=== PATIENT | male | born 1940 | race Caucasian/White ===

== ENCOUNTER 2018-08-13 14:15 | Inpatient (IN) | payer MEDICARE ==
[~2018-08-13] VITALS: Ht 171.4 cm; Wt 99.4 kg
[2018-10-22] MEDS ORDERED: AMLO5TAB9 PO (17:09)
[2018-10-22] MEDS ORDERED: UBID100C10 PO (17:09)
[2018-10-22] MEDS ORDERED: LOVA20TA3 PO (17:09)
[2018-10-22] MEDS ORDERED: TURM500C9 PO (17:09)
[2018-10-22] MEDS ORDERED: DIPH25TA20 PO (17:09)
[2018-10-22] MEDS ORDERED: CARV25TA PO (17:09)
[2018-10-22] MEDS ORDERED: RANI300C PO (17:09)
[2018-10-22] MEDS ORDERED: LISI-613 PO (17:09)
[2018-10-22] MEDS ORDERED: CINNAMON PO (17:09)
[2018-10-22] MEDS ORDERED: ASCO10007 PO (17:09)
[2018-10-22] MEDS ORDERED: METF-444 PO (17:09)
[2018-10-22] MEDS ORDERED: CRAN1TAB2 PO (17:09)
[2018-10-22] MEDS ORDERED: TERA10CA4 PO (17:09)
[2018-10-22] MEDS ORDERED: CHOL200013 PO (17:09)
[2018-10-22] MEDS ORDERED: MULT-1203 PO (17:09)
[2018-10-22] MEDS ORDERED: FISH12002 PO (17:09)
[2018-10-22] MEDS ORDERED: GLUC-148 PO (17:09)
[2018-10-22] MEDS ORDERED: ZINC50TA64 PO (17:09)
[2018-10-28] MEDS ORDERED: OXYC5 PO (07:58)
[2019-05-13 10:46] LABS: BILIRUBIN,URINE Small (NEGATIVE); COLOR,URINE Dark Yellow (YELLOW); GLUCOSE, URINE (UA) Negative (NEGATIVE); KETONES,URINE Trace mg/dL (NEGATIVE); LEUKOCYTE ESTERASE ,URINE Trace (NEGATIVE); NITRATE,URINE Negative (NEGATIVE); OCCULT BLOOD,URINE Negative (NEGATIVE); PH,URINE 5.5 (5.0-8.0); PROTEIN,URINE Trace mg/dL (NEGATIVE)
[2019-05-13 10:51] LABS: APPEARANCE,URINE Clear (CLEAR)
[2019-05-13 11:14] LABS: BACTERIA,URINE Rare /HPF (None Seen); MUCUS,URINE Moderate LPF (None Seen); RBC,URINE 0-1 /HPF (0-1); SQUAMOUS EPITHELIAL CELL,UR Rare /HPF (0-2); WBC,URINE 0-1 /HPF (0-1)
[2019-05-13 11:17] VITALS: BP 124/50
[2019-05-13] MEDS ORDERED: FURO20TA6 PO (11:56)
[2019-05-13] MEDS ORDERED: TURM1CAP PO (11:58)
[2019-05-13] MEDS ORDERED: ASPI-555 PO (12:01)
[2019-05-13] MEDS ORDERED: NITR0.4T50 SL (12:03)
--- NOTE | 2019-05-13 16:38 | NUR ---
UA INFORMED DR. SANCHEZ OF ABNORMAL UA. ORDERS RECEIVED TO GIVE GENTAMICIN 240MG IV ON AM OF PROCEDURE AND DO URINE CULTURE ON URINE COLLECTED FROM TODAY.
[2019-05-16] VITALS (19 sets, daily range): BP systolic 103–152; BP diastolic 46–63
[2019-05-16] MEDS: CLINDAMYCIN 900 MG/D5% WATER 50 ML IV SCH ×2 (05:00→12:30)
[2019-05-16] MEDS ORDERED: GENTAMICIN SULFATE 240 MG in SODIUM CHLORIDE 0.9% 100 ML IV SCH (07:00)
[2019-05-16] MEDS ORDERED: GENTAMICIN SULFATE 0 MG in SODIUM CHLORIDE 0.9% 100 ML IV SCH (07:00)
[2019-05-16] MEDS ORDERED: SODIUM CHLORIDE 0.9% 1000ML 1,000 ML IV ONE (09:50)
[2019-05-16] MEDS ORDERED: ACETAMINOPHEN EXTRA STRENGTH 500 MG TABLET ONE (11:19)
[2019-05-16] MEDS ORDERED: OXYCODONE HCL 10 MG TAB.SR.12H PO ONE (11:19)
[2019-05-16] MEDS ORDERED: KETOROLAC TROMETHAMINE 15MG/ML ONE (11:19)
[2019-05-16] MEDS ORDERED: ROPIVACAINE 0.5% 5MG/ML 30ML IJ ONE (12:02)
[2019-05-16] MEDS ORDERED: LIDOCAINE PF 2% 5ML ABBOJECT ONE (12:03)
[2019-05-16] MEDS ORDERED: PROPOFOL 10 MG/ML 20ML VIAL IV ONE (12:04)
[2019-05-16] MEDS ORDERED: MIDAZOLAM HCL 1 MG/ML 2ML VIAL ONE (12:04)
[2019-05-16] MEDS ORDERED: FENTANYL CITRATE PF 50 MCG/1 ML 2ML VIAL ONE ×2 (12:04→14:28)
[2019-05-16] MEDS ORDERED: ROCURONIUM 10MG/1ML SYR 10 MG/ML ML ONE ×2 (12:04→12:55)
[2019-05-16] MEDS ORDERED: EPHEDRINE SULFATE 50 MG/ML AMPULE ONE (12:31)
[2019-05-16] MEDS ORDERED: GLYCOPYRROLATE 1 MG/5 ML SYRINGE ONE (12:44)
[2019-05-16] MEDS ORDERED: NEOSTIGMINE 5MG/5ML SYR IV ONE (12:44)
[2019-05-16] MEDS ORDERED: ONDANSETRON HCL 4 MG/2 ML VIAL ONE (12:44)
[2019-05-16] MEDS: TRANEXAMIC ACID 1000MG/10ML IV ONE ×2 (13:00→15:57)
[2019-05-16] MEDS ORDERED: KETOROLAC TROMETHAMINE 30MG/ML ONE (14:00)
[2019-05-16] MEDS: CLINDAMYCIN PHOSPHATE 150 MG/ML 6ML VIAL ONE ×2 (14:53→14:54)
[2019-05-16] MEDS ORDERED: CALCIUM CARBONATE 500 MG TABLET PO PRN (15:30)
[2019-05-16] MEDS ORDERED: TRAMADOL HCL 50 MG TABLET PO PRN (15:30)
[2019-05-16] MEDS ORDERED: POTASSIUM CHLORIDE 20 MEQ ERTAB PO PRN (15:30)
[2019-05-16] MEDS ORDERED: LIDOCAINE HCL-MPF 1% 2ML VIAL IV PRN (15:30)
[2019-05-16] MEDS ORDERED: ONDANSETRON HCL 4 MG/2 ML VIAL IVP PRN (15:30)
[2019-05-16] MEDS ORDERED: FERROUS FUMARATE 324 MG TABLET PO PRN (15:30)
[2019-05-16] MEDS ORDERED: POTASSIUM CHLORIDE 20MEQ/100ML 100 ML IV PRN (15:30)
[2019-05-16] MEDS ORDERED: DiphenhydrAMINE HCL 50 MG/ML VIAL IVP PRN (15:30)
[2019-05-16] MEDS ORDERED: POTASSIUM CHLORIDE 10% ELIXIR 20 MEQ/15 ML UDCUP PO PRN (15:30)
--- NOTE | 2019-05-16 16:22 | NUR ---
TRANEXAMIC ACID 1GM IVPB GIVEN IN PACU. Addendum: 05/16/19 at 1623 by LOU WIN RN RN Amended: Links added.
[2019-05-16] MEDS: INSULIN HUMULIN R 100 UNIT/ML 3ML SQ SCH ×2 (16:30→21:00)
--- NOTE | 2019-05-16 17:00 | NUR ---
POST SURGERY PATIENT RECEIVED FROM PACU IN STABLE CONDITION. HE IS AWAKE AND ALERT, DENIES PAIN AT THIS TIME. DRESSING TO RIGHT HIP IS DRY AND INTACT. IV IS PATENT INFUSING FLUIDS WITH NO REDNESS OR SWELLING NOTED TO SITE. HE HAS BEEN ORIENTED TO ROOM AND USE OF CALL LIGHT. ALL PERSONAL BELONGINGS ARE WITHIN REACH. BED IS IN LOWEST POSITION AND LOCKED. POST OP V/S ARE IN PLACE. WILL CONTINUE TO MONITOR.
[2019-05-16] MEDS ORDERED: NITROGLYCERIN 0.4 MG SL TAB SL PRN (17:45)
[2019-05-16] MEDS: SODIUM CHLORIDE 0.9% 1000ML 1,000 ML IV SCH (17:54)
[2019-05-16] MEDS: OXYCODONE HCL 5 MG TAB PO PRN (20:07)
[2019-05-16] MEDS: TERAZOSIN HCL 5 MG CAPSULE PO SCH (20:11)
[2019-05-16] MEDS: ASPIRIN 81 MG EC TAB PO SCH (20:11)
[2019-05-16] MEDS: METFORMIN HCL 500 MG TABLET PO SCH (20:11)
[2019-05-16] MEDS: AMLODIPINE BESYLATE 5 MG TAB PO SCH (20:11)
[2019-05-16] MEDS: PREGABALIN 25 MG CAP PO SCH (20:11)
[2019-05-16] MEDS: LISINOPRIL 20 MG TABLET PO SCH (20:12)
[2019-05-16] MEDS: ATORVASTATIN CALCIUM 10 MG TABLET PO SCH (20:13)
[2019-05-16] MEDS: VANCOMYCIN 1GM+NS 250ML 250 ML IV SCH (20:13)
[2019-05-16] MEDS: CARVEDILOL 25 MG TABLET PO SCH (20:13)
[2019-05-16] MEDS: FAMOTIDINE 20MG TAB 20 MG TAB PO SCH (20:25)
[2019-05-16] MEDS ORDERED: RANITIDINE HCL 300 MG PO SCH (21:00)
[2019-05-16] MEDS: KETOROLAC TROMETHAMINE 15MG/ML IV PRN (22:23)
[2019-05-17] MEDS: OXYCODONE HCL 5 MG TAB PO PRN ×4 (00:11→19:27)
[2019-05-17] MEDS: SODIUM CHLORIDE 0.9% 1000ML 1,000 ML IV SCH ×2 (01:52→11:25)
--- NOTE | 2019-05-17 02:13 | NUR ---
NO VOID PATIENT UNABLE TO VOID COMPLETELY ONLY 25 ML AT A TIME. PATIENT WAS BLADDER SCANNED TO FINE 455 ML IN BLADDER. PATIENT WAS THEN STRAIGHT CATHETERIZED AND REMOVED 550 ML OF CLEAR YELLOW URINE.
[2019-05-17 03:20] VITALS: BP 133/59
[2019-05-17 04:23] LABS: HEMATOCRIT 31.1 % (42-54); MEAN CORPUSCULAR HEMOGLOBIN 29.7 pg (27.0-33.0); MEAN CORPUSCULAR VOLUME 87.5 fL (79-99); PLATELET COUNT (AUTO) 162 K/uL (130-400); RED BLOOD CELL COUNT(AUTO) 3.56 MIL/uL (4.50-6.20); WHITE BLOOD COUNT (AUTO) 10.9 K/uL (4.8-10.8)
[2019-05-17 04:48] LABS: CREATININE 0.8 mg/dL (0.5-1.5); POTASSIUM 3.9 mmol/L (3.5-5.1)
[2019-05-17] MEDS: CLINDAMYCIN 900 MG/D5% WATER 50 ML IV SCH (05:00)
[2019-05-17] MEDS: INSULIN HUMULIN R 100 UNIT/ML 3ML SQ SCH ×4 (06:10→21:00)
[2019-05-17 07:55] VITALS: BP 127/50
[2019-05-17] MEDS: POLYETHYLENE GLYCOL 3350 17 GM POWD.PACK PO SCH (08:46)
[2019-05-17] MEDS: VANCOMYCIN 1GM+NS 250ML 250 ML IV SCH (08:46)
[2019-05-17] MEDS: ASCORBIC ACID 500 MG TAB PO SCH (08:46)
[2019-05-17] MEDS: FAMOTIDINE 20MG TAB 20 MG TAB PO SCH ×2 (08:47→19:51)
[2019-05-17] MEDS: APIXABAN 2.5 MG TABLET PO SCH ×2 (08:47→19:50)
[2019-05-17] MEDS: FUROSEMIDE 20 MG TABLET PO SCH (08:47)
[2019-05-17] MEDS: LISINOPRIL 20 MG TABLET PO SCH ×2 (08:48→19:51)
[2019-05-17] MEDS: PREGABALIN 25 MG CAP PO SCH ×2 (08:49→19:50)
[2019-05-17] MEDS: CARVEDILOL 25 MG TABLET PO SCH ×2 (09:00→19:50)
[2019-05-17 11:37] VITALS: BP 135/52
--- NOTE | 2019-05-17 11:43 | NUR ---
DCP CM met w/pt discussed dc plans. Pt is semi-independent prior to admission, lives at home with spouse. Has a handicapped restroom, raised commode, rollator walker, standard walker no wheels, cpap, and ramp to enter the front house built by their [employer] volunteers. Pt agreeable for short term placement rehab, [facility] signed for [facility]. Faxed order, clinicals, PT, and [facility], confirmation received. DC plan to SNF. CM to cont to follow up. Addendum: 05/17/19 at 1146 by MARIELLE LIMON LVN CM Amended: Links added.
--- NOTE | 2019-05-17 13:35 | NUR ---
BLADDER SCAN 351 CC VOLUME PER BLADDER SCANER
--- NOTE | 2019-05-17 14:00 | NUR ---
DR. KARYN VERDUZCO, SPOKE Reyna RAMOS STATED DR. BOSS WILL TAKE CONSULT SINCE IT IS HIS PATIENT PT'S INFORMATION GIVEN PENDING CALL BACK FROM DR. BOSS
[2019-05-17 17:58] LABS: APPEARANCE,URINE CLOUDY (CLEAR); BILIRUBIN,URINE NEGATIVE (NEGATIVE); COLOR,URINE YELLOW (YELLOW); GLUCOSE, URINE (UA) NEGATIVE (NEGATIVE); KETONES,URINE NEGATIVE (NEGATIVE); LEUKOCYTE ESTERASE ,URINE SMALL (NEGATIVE); NITRATE,URINE NEGATIVE (NEGATIVE); OCCULT BLOOD,URINE LARGE (NEGATIVE); PH,URINE 5.5 (5.0-8.0); PROTEIN,URINE 30 mg/dL (NEGATIVE); UROBILINOGEN,URINE 0.2 mg/dL (0.2-1.0)
[2019-05-17 18:08] LABS: BACTERIA,URINE Few /HPF (None Seen); RBC,URINE 51-100 /HPF (0-1)
[2019-05-17 18:09] LABS: SQUAMOUS EPITHELIAL CELL,UR Rare /HPF (0-2)
[2019-05-17 19:05] VITALS: BP 129/51
[2019-05-17] MEDS: AMLODIPINE BESYLATE 5 MG TAB PO SCH (19:50)
[2019-05-17] MEDS: ASPIRIN 81 MG EC TAB PO SCH (19:50)
[2019-05-17] MEDS: TERAZOSIN HCL 5 MG CAPSULE PO SCH (19:50)
[2019-05-17] MEDS: ATORVASTATIN CALCIUM 10 MG TABLET PO SCH (19:51)
[2019-05-17] MEDS: METFORMIN HCL 500 MG TABLET PO SCH (19:51)
[2019-05-17 23:21] VITALS: BP 124/52
[2019-05-18] MEDS: OXYCODONE HCL 5 MG TAB PO PRN ×4 (00:53→20:43)
[2019-05-18] MEDS: KETOROLAC TROMETHAMINE 15MG/ML IV PRN (02:51)
[2019-05-18 03:10] VITALS: BP 122/49
[2019-05-18] MEDS: CLINDAMYCIN 900 MG/D5% WATER 50 ML IV SCH ×2 (04:58→20:49)
[2019-05-18] MEDS: INSULIN HUMULIN R 100 UNIT/ML 3ML SQ SCH ×4 (05:57→20:38)
[2019-05-18 07:30] VITALS: BP 116/81
[2019-05-18] MEDS: LISINOPRIL 20 MG TABLET PO SCH ×2 (09:00→20:47)
[2019-05-18] MEDS: CARVEDILOL 25 MG TABLET PO SCH ×2 (09:00→20:48)
[2019-05-18] MEDS: PREGABALIN 25 MG CAP PO SCH ×2 (09:45→20:43)
[2019-05-18] MEDS: APIXABAN 2.5 MG TABLET PO SCH ×2 (09:46→20:43)
[2019-05-18] MEDS: FUROSEMIDE 20 MG TABLET PO SCH (09:46)
[2019-05-18] MEDS: FAMOTIDINE 20MG TAB 20 MG TAB PO SCH ×2 (09:46→20:43)
[2019-05-18] MEDS: ASCORBIC ACID 500 MG TAB PO SCH (09:47)
[2019-05-18] MEDS: POLYETHYLENE GLYCOL 3350 17 GM POWD.PACK PO SCH (09:47)
[2019-05-18 11:03] VITALS: BP 115/54
[2019-05-18 16:18] VITALS: BP 130/63
[2019-05-18 19:18] VITALS: BP 123/51
[2019-05-18] MEDS: METFORMIN HCL 500 MG TABLET PO SCH (20:43)
[2019-05-18] MEDS: ASPIRIN 81 MG EC TAB PO SCH (20:43)
[2019-05-18] MEDS: TERAZOSIN HCL 5 MG CAPSULE PO SCH (20:43)
[2019-05-18] MEDS: ATORVASTATIN CALCIUM 10 MG TABLET PO SCH (20:44)
[2019-05-18] MEDS: AMLODIPINE BESYLATE 5 MG TAB PO SCH (20:47)
[2019-05-18 23:19] VITALS: BP 133/52
[2019-05-19] MEDS: OXYCODONE HCL 5 MG TAB PO PRN ×4 (01:58→16:47)
[2019-05-19 03:21] VITALS: BP 137/58
[2019-05-19] MEDS: INSULIN HUMULIN R 100 UNIT/ML 3ML SQ SCH ×4 (06:05→16:30)
[2019-05-19 07:44] VITALS: BP 134/65
[2019-05-19] MEDS ORDERED: APIX2.5T PO (09:00)
[2019-05-19] MEDS ORDERED: OXYC5 PO (09:00)
[2019-05-19] MEDS: POLYETHYLENE GLYCOL 3350 17 GM POWD.PACK PO SCH (09:52)
[2019-05-19] MEDS: ASCORBIC ACID 500 MG TAB PO SCH (09:54)
[2019-05-19] MEDS: FAMOTIDINE 20MG TAB 20 MG TAB PO SCH (09:54)
[2019-05-19] MEDS: APIXABAN 2.5 MG TABLET PO SCH (09:54)
[2019-05-19] MEDS: PREGABALIN 25 MG CAP PO SCH (09:54)
[2019-05-19] MEDS: FUROSEMIDE 20 MG TABLET PO SCH (09:55)
[2019-05-19] MEDS: CARVEDILOL 25 MG TABLET PO SCH (09:55)
[2019-05-19] MEDS: LISINOPRIL 20 MG TABLET PO SCH (09:57)
--- NOTE | 2019-05-19 09:57 | NUR ---
CM Note: [facility] acceptance. CM spoke to Janet howard/[facility]. Pt completed 3rd MD last night. Pt has acceptance. EMS arranged and faxed, primary nurse to call [facility]. Primary nurse aware. CM to cont to follow up.
[2019-05-19 11:28] VITALS: BP_SYST 123; BP_SYST 57; BP_DIAS 57
[2019-05-19] MEDS ORDERED: BISACODYL 10 MG SUPP.RECT RC PRN (15:30)
--- NOTE | 2019-05-19 15:55 | NUR ---
DISCHARGE NURSE REPORT GIVEN TO NURSE LACKEY OF [facility] [phone]. INFORMED NURSE DARYA OF DR. SANCHEZ DISCHARGE ORDERS (AMBULATE WBAT WITH WALKER, DAILY DRESSING CHANGES, RACH HOSE, RX ELIQUIS, OXYCODONE). ALSO INFORMED THAT ORIGINAL RX FOR ELIQUIS AND OXYCODONE WILL BE PLACED IN PATIENT [facility] [employer]. INFORMED NURSE DARYA THAT PATIENT HAS F/U APPT SCHEDULED WITH DR. BOSS TO FOLLOW-UP REGARDING URINARY RETENTION AND VINCENT CATHETER. PATIENT TO BE DISCHARGE WITH 16FR VINCENT CATHETER IN PLACE PER DR. BOSS ORDER. DARYA TOLD ME THAT THEY WOULD SEND SLIP BOX CHANGER TO [facility] PATIENT. PERFORMED RIGHT HIP DRESSING CHANGE. RIGHT HIP INCISION NOTED TO BE APPROXIMATED AND ASYMPTOMATIC, NO DRAINAGE NOTED. CLEANSED RIGHT HIP INCISION WITH BETADINE, COVERED WITH 4X4 GAUZE AND SECURED WITH MEDIPORE TAPE. REAPPLIED RACH HOSE TO RIGHT LEG AFTER DRESSING CHANGE. PROVIDED DISCHARGE TEACHING TO PATIENT REGARDING (ELIQUIS, OXYCODONE), RACH HOSE, DAILY DRESSING CHANGE, CONTINUE AMBULATION WBAT TO RIGHT LEG WITH WALKER, VINCENT CATHETER CARE, SCHEDULED F/U APPTSWITH DR. SANCHEZ AND DR. BOSS. PATIENT VERBALIZED UNDERSTANDING OF DISCHARGE TEACHING. [address] AT TIME IF DISCHARGE, SECURED TO LEFT THIGH. REMOVED 20G IV FROM LEFT HAND, CATHETER TIP INTACT. AWAITING TO BE PICKED UP BY [facility] STAFF. Addendum: 05/19/19 at 1906 by JAYESH CRAWFORD RN RN EDIT TIME: TIME OF DISCHARGE TEACHING AND NURSE REPORT AROUND 1655 NOT 1555
--- NOTE | 2019-05-19 15:57 | NUR ---
ATTEMPT TO GIVE REPORT TO LIZZIE ACOSTA CALLED [facility] [phone] TO GIVE REPORT. MIGUEL OF [facility] TOLD ME NURSES WERE "BUSY ROUNDING". PROVIDED MY DIRECT CALLBACK NUMBER TO MIGUEL. AWAITING CALLBACK.
== END 2019-05-19 19:01 | DRG 470 ==
LOC: EDSTATUS 05-13 09:30 → DAHIP 05-16 08:17 → 4AH 05-16 16:45
PROVIDERS: ADMIT Orthopaedic Surgery; ATTEND Orthopaedic Surgery
PROC: 0SR90JZ Replacement of Right Hip Joint with Synthetic Substitute, Open Approach (ICD-10-PCS; principal; 2019-05-16 12:04)
PROC: 3E0T3BZ Introduction of Anesthetic Agent into Peripheral Nerves and Plexi, Percutaneous Approach (ICD-10-PCS; 2019-05-16 12:04)
DX: M16.11 Unilateral primary osteoarthritis, right hip (principal); N40.1 Benign prostatic hyperplasia with lower urinary tract symptoms; R33.8 Other retention of urine; E78.5 Hyperlipidemia, unspecified; I11.9 Hypertensive heart disease without heart failure; N99.89 Other postprocedural complications and disorders of genitourinary system; I25.10 Atherosclerotic heart disease of native coronary artery without angina pectoris; I34.0 Nonrheumatic mitral (valve) insufficiency; G89.29 Other chronic pain; J44.9 Chronic obstructive pulmonary disease, unspecified; Z96.652 Presence of left artificial knee joint; Z88.0 Allergy status to penicillin; Z88.8 Allergy status to other drugs, medicaments and biological substances; Z91.048 Other nonmedicinal substance allergy status; Z87.891 Personal history of nicotine dependence; Z87.440 Personal history of urinary (tract) infections; Z82.49 Family history of ischemic heart disease and other diseases of the circulatory system
CPT/HCPCS: 36415; 73503; 80048; 81001; 82948; 85027; 87088; 87641; 88304; 88311; 96365; 96374; 97039; C1776; G0378; J1580; J1815; J1885; J2001; J2250; J2405; J2704; J2710; J2795; J3010; J3370; J3490; J7030

== ENCOUNTER → 2018-08-23 | Outpatient (CLI) | payer MEDICARE | END | disposition home or self-care (01) | LOC: SHCH 16:00 | PROVIDERS: ATTEND Internal Medicine Cardiovascular Disease | DX: R94.31 Abnormal electrocardiogram [ECG] [EKG] (principal); I10 Essential (primary) hypertension; E11.9 Type 2 diabetes mellitus without complications | CPT/HCPCS: 93306 ==

== ENCOUNTER → 2018-08-27 | Outpatient (CLI) | payer MEDICARE ==
[~2018-08-27] VITALS: Ht 175.3 cm; Wt 100.7 kg
[~2018-08-27] MED LIST: REGADENOSON 0.4 MG/5 ML PF SYG IVP SCH
== END | disposition home or self-care (01) ==
LOC: SHCH 08:05
PROVIDERS: ATTEND Internal Medicine Cardiovascular Disease
DX: R94.31 Abnormal electrocardiogram [ECG] [EKG] (principal); E78.5 Hyperlipidemia, unspecified
CPT/HCPCS: 78452; 93017; 96374; A9500 ×2; J2785

== ENCOUNTER → 2021-04-04 | Outpatient (CLI) | payer MEDICARE ==
[~2021-04-04] MED LIST changes: +AMLO-257 PO; +APIX2.5T PO; +ASCO100031 PO; +ASPI-556 PO; +CARV25TA PO; +CHOL200013 PO; +CRAN1TAB2 PO; +DIPH25TA20 PO; +FURO20TA6 PO; +LISI20TA24 PO; +LOVA20TA3 PO; +METF-444 PO; +MULT-1203 PO; +NITR0.4T50 SL; +OXYC5 PO; +RANI300C PO; -REGADENOSON 0.4 MG/5 ML PF SYG IVP SCH; +TERA10CA4 PO
== END | disposition home or self-care (01) ==
LOC: SHCH 11:02
PROVIDERS: ATTEND Internal Medicine Cardiovascular Disease
DX: I48.0 Paroxysmal atrial fibrillation (principal)
CPT/HCPCS: 93306; 93356

== ENCOUNTER → 2022-08-19 | Outpatient (CLI) | payer MEDICARE | END | disposition home or self-care (01) | LOC: SHCH 12:58 | PROVIDERS: ATTEND Internal Medicine Cardiovascular Disease | DX: I87.2 Venous insufficiency (chronic) (peripheral) (principal) | CPT/HCPCS: 93970 ==